=== PATIENT | male | born 1950 | race Caucasian/White ===

== ENCOUNTER 2020-01-09 07:40 | Inpatient (IN) | payer MEDICARE ==
[~2020-01-09] VITALS: Ht 180.3 cm; Wt 114.4 kg
[2020-01-09] VITALS (16 sets, daily range): BP systolic 125–193; BP diastolic 63–125
[~2020-01-09 07:40] MED LIST: ALBUTEROL0.09 MG/A2 INH; AVPAK AZITHROM250 M1 PO; BACTRIM DS 8001 TA1 PO; CIPRO500 MG PO; DUONEB 3 MG/3 ML3 M1 NEB; FLAGYL500 MG PO; KEFLEX500 MG PO; NKHM PO; ORASONE10 MG PO; PERCOCET 325 MG1 TA7 PO; SPIRIVA18 MCG PO; SYMBICORT1 AE1 INH; VICODIN 5/500 505 MG PO
--- NOTE | 2020-01-09 07:56 | NUR ---
BIPAPP CHANGED TO 05/04 100% PULSE OX 89%
--- NOTE | 2020-01-09 08:00 | NUR ---
PATIENT PLACED ON BI-PAP 05/04, 75%. PULSE OX 93%, HR 103, RR 44.
--- NOTE | 2020-01-09 08:00 | NUR ---
BIPAPP 16/8 75% PULSE OX 93%
--- NOTE | 2020-01-09 08:03 | NUR ---
STATES HE LAST SAW PULMONOLOGY LAST WED, SINCE THEN INCREASING WEAKNESS, SOB, AND PEDAL EDEMA HE STOPPED TAKING LOSARTIN BC IT WAS MAKING HIM DIZZY WEARS 2LNC AT ALL TIMES AT HOME
[2020-01-09 08:10] LABS: MEAN CELL VOLUME 96.7 fl (80.0-94.0); MEAN CORPUSCULAR HGB 27.4 pg (27.0-31.0); MEAN CORPUSCULAR HGB CONC 28.3 g/dl (33.0-37.0); MEAN PLATELET VOLUME 10.5 fl (9.6-12.3); NUCLEATED RED BLOOD CELL 0.4 10*3/uL (0.0-0.0); NUCLEATED RED BLOOD CELL 2.6 % (0.0-0.0); PLATELET COUNT AUTOMATED 163 10*3/uL (130-400); RED BLOOD COUNT 6.87 10*6/uL (4.50-5.90); RED CELL DISTRI WIDTH 17.7 % (0-14.5); WHITE BLOOD COUNT 17.2 10*3/uL (4.8-10.8)
[2020-01-09 08:22] LABS: HEMATOCRIT 66.4 % (42.0-52.0)
--- NOTE | 2020-01-09 08:24 | NUR ---
PT PLACED ON BIPAP IN EMERGENCY ROOM FOR RESPIRATORY FAILURE. PT SPO2 69% ON ARRIVAL. PT SETTINGS 16/10/75%, PT SPO2 94%, HR 110
[2020-01-09 08:25] LABS: ATYPICAL LYMPHS 1 % (0-0); PLATELET SUFFICIENCY NORMAL (NORMAL); POLYCHROMASIA SLIGHT; TOTAL CELLS COUNTED 100 #CELLS
[2020-01-09 08:45] LABS: ALBUMIN 3.1 gm/dl (3.1-4.5); CREATININE 1.58 mg/dL (0.70-1.30); POTASSIUM 5.4 mmol/L (3.5-5.1); TOTAL PROTEIN 7.4 gm/dL (6.4-8.2); TROPONIN I 0.043 ng/ml (<0.045)
--- NOTE | 2020-01-09 08:45 | NUR ---
FIO2 INCREASED TO 85% PER DR. MUÑOZ.
--- NOTE | 2020-01-09 08:55 | NUR ---
AVILA PLACED HAD 800CC DANA URINE INITIALLY
[2020-01-09 09:07] LABS: ABG BASE EXCESS 0.2 mmol/L (-2.0-2.0)
--- NOTE | 2020-01-09 09:07 | NUR ---
DR SPANN NOTIFIED OF BP AND PT CONDITION, ALSO OUTPUT OF AVILA
[2020-01-09 09:10] LABS: ACT PARTIAL THROMBO TIME 24.6 SECONDS (20.0-32.1); INTERNATIONAL NORM RATIO 1.5 (2.0-3.5)
[2020-01-09 09:13] LABS: ARTERIAL BLOOD GAS PH 7.12 (7.35-7.45)
--- NOTE | 2020-01-09 09:13 | NUR ---
CO2 AND PH RESULTS GIVEN TO DR SPANN
--- NOTE | 2020-01-09 09:14 | NUR ---
BIPAPP UP TO 85%
--- NOTE | 2020-01-09 10:04 | NUR ---
NOTIFIED FAMILY OF PLAN OF CARE
[2020-01-09] MEDS ORDERED: LOSARTAN POTASS25 M1 PO (10:07)
--- NOTE | 2020-01-09 10:10 | NUR ---
PT DROWSY, RESTING
--- NOTE | 2020-01-09 10:14 | NUR ---
AWAITING BED PLACEMENT IN ICU
--- NOTE | 2020-01-09 10:52 | NUR ---
SECOND EKG COMPLETED, NOTIFIED DR JIMENEZ PT DROWSY, NOT ANSWERING QUESTIONS AND OPENING EYES LIKE UPON ARRIVAL, STATES "HES EXHAUSTED AND HIS BODY JUST NEEDS A REST, I'M NOT CONCERNED" VITALS STABLE
--- NOTE | 2020-01-09 11:48 | NUR ---
STILL AWAITING BED ASSIGNMENT
--- NOTE | 2020-01-09 12:59 | NUR ---
CALLED FLOOR, UNABLE TO TAKE PATIENT UP TO UNIT THEY WILL CALL WHEN READY
--- NOTE | 2020-01-09 13:30 | NUR ---
A 69 yr old male, admitted to ICCU, under the services of JERRY Tian DO with a diagnosis of . Chief complaint is short of breath x 2 days, wheezing and dusky on arrival to ER. Was placed on BiPaP 14/8 and 50% FIO2. ABG's were initially done with pH 7.12 and pCO2 of 122. He was maintained in ER, given IV Lasix, SoluMedrol,Zithromax and Rocephin. Before Patient could be brought to ICCU he was evaluated by the admitting team and found to be unresponsive. ABGs were repeated and pt brought to the ICCU before results were availabe. Dr Dillon was in ICCU waiting on patient to arrive. Patient arrived via stretcher from ER. Monitor applied. Initial assessment completed. Vital signs taken and recorded. See assessment for past medical history, medications and allergies. Patient and/or family oriented to unit. [facility] ICCU visitation policy reviewed. Clothing/patient valuable form completed. FEROZ CHANG L
[2020-01-09 13:38] LABS: ABG BASE EXCESS -6.2 mmol/L (-2.0-2.0); ARTERIAL BLOOD GAS PH 6.99 (7.35-7.45)
--- NOTE | 2020-01-09 13:45 | NUR ---
PT ELECTIVE INTUBATED FOR RESPIRATORY FAILURE WITH A 8 TUBE, 23 AT THE LIP. PTS SETTINGS 500/100%/12/+5. PT TOLERATTING WELL.
--- NOTE | 2020-01-09 13:45 | NUR ---
Patient was intubated by Jacinda Tay CRNA, after unsucessful attempt by Dr Dillon. Patient had 100mg Succinylcholine for intubation. #8 ETT, 23 at the lip. #18 [place] Sump placed orally by SOLUTION PROFESSIONAL also. Stat PCXR done. Soft restraints on to prevent accidental self extubation.
[2020-01-09] MEDS ORDERED: INCRUSE ELLI62.5 MCG INH (14:08)
[2020-01-09] MEDS ORDERED: BREO ELLIPTA 11 EACH INH (14:10)
--- NOTE | 2020-01-09 14:34 | NUR ---
Patient starting to cough, become restless. Diprivan started at 30mcg/kg/min and adequate sedation achieved. Patient arrived from ER with a kevin catheter already in place. An additional IV site obtained left hand by Alia Pham. See all appropriate interventions.
[2020-01-09 15:43] LABS: ABG BASE EXCESS 2.4 mmol/L (-2.0-2.0); ARTERIAL BLOOD GAS PH 7.3 (7.35-7.45)
--- NOTE | 2020-01-09 16:08 | NUR ---
ABG'S WERE DONE RT RADIAL AND CALLED WITH CONSULT TO DR VANCE. REVIEW OF LABS/XRAY.
--- NOTE | 2020-01-09 16:20 | NUR ---
FIO2 HAS BEEN TITRATED DOWN TO 50% POST ABG'S.
--- NOTE | 2020-01-09 18:00 | NUR ---
DR VANCE WAS NOTIFIED OF RESULTS OF REPEAT CXR SHOWING LOSS OF VOLUME RT LUNG AND THAT GASTRIC TUBE NEEDED ADVANCED 7CM. HE WAS ALSO NOTIFIED OF INCREASING FIO2 NEEDED TO MAINTAIN PULSE OX >90%. THE GASTRIC TUBE HAS BEEN ADVANCED WITH AIR BOLUS AUSCULTATED. ORDERS RECEIVED.
--- NOTE | 2020-01-09 18:46 | NUR ---
PT TURNED SIDE TO SIDE, CHEST CLAPPING DONE. SALINE FLUSHES AND SUCTIONED. LARGE AMOUNT THICK YELLOW MUCUS SUCTIONED FROM ETT.
--- NOTE | 2020-01-09 20:37 | NUR ---
PT. RESTING IN BED ADEQUATELY SEDATED ON DIPROVAN DRIP AT 30MICS. HEP LOCK IN LH AND RAN ASYMPT. DIPROVAN INFUSING AT 30MICS, SITE ASYMPT. LUNGS HAVE I&E WHEEZES BILAT AND RHONCHI. ABD SOFTLY DISTENDED AND NORMO. BLE EDEMA NOTED R>L. OGT PLACEMENT CONFIRMED WITH AIR BOLUS AND 10CC'S RESIDUAL WAS NOTED. ORAL MOUTH CARE GIVEN AND PT. SUCTIONED VIA ENDO AND ORALLY FOR SMALL AMT OF MUCOUS. AVILA CATHTER DRAINING A MODERATE AMT OF CLEAR YELLOW URINE. SOFT WRIST RESTRAINTS BILAT TO PREVENT ACCIDENTAL SELF-EXTUBATION. ELA GRIMALDO RN
--- NOTE | 2020-01-09 23:47 | NUR ---
PT. GIVEN VERSED AT 2332 FOR RESTLESSNESS AND DIPROVAN INCREASED TO 40MICS. CURRENTLY SLEEPING, VERSED EFFECTIVE. ELA GRIMALDO RN
[2020-01-10] VITALS (12 sets, daily range): BP systolic 120–164; BP diastolic 51–82
--- NOTE | 2020-01-10 03:07 | NUR ---
VERSED GIVEN AT 0305 ORDERED FOR RESTLESSNESS. IMMEDIATELY EFFECTIVE. ELA GRIMALDO RN
--- NOTE | 2020-01-10 05:54 | NUR ---
PT. GIVEN VERSED ORDERED AT 0552 FOR RESTLESSNESS. ELA GRIMALDO RN
--- NOTE | 2020-01-10 05:54 | NUR ---
PT. RESTING COMFORTABLY, VERSED EFFECTIVE. ELA GRIMALDO RN
[2020-01-10 06:35] LABS: BASO % 0.2 % (0.0-1.0); LYMPH # 0.5 10*3/uL (1.3-4.4); MEAN CORPUSCULAR HGB CONC 30.5 g/dl (33.0-37.0); MEAN PLATELET VOLUME 10.9 fl (9.6-12.3); MONO # 1.3 10*3/uL (0.1-1.0); MONO % 8.1 % (3.0-9.0); NEUT # 13.5 10*3/uL (2.3-7.9); NEUT % 87.9 % (47.0-73.0); NUCLEATED RED BLOOD CELL 0.2 10*3/uL (0.0-0.0); RED BLOOD COUNT 6.81 10*6/uL (4.50-5.90); RED CELL DISTRI WIDTH 16.8 % (0-14.5); WHITE BLOOD COUNT 15.4 10*3/uL (4.8-10.8)
[2020-01-10 06:36] LABS: MEAN CELL VOLUME 88.5 fl (80.0-94.0); PLATELET COUNT AUTOMATED 99 10*3/uL (130-400)
[2020-01-10 06:38] LABS: HEMATOCRIT 60.3 % (42.0-52.0)
[2020-01-10 06:52] LABS: ALBUMIN 2.4 gm/dl (3.1-4.5); BUN 65 mg/dl (7-24); CHLORIDE 97 mmol/L (98-107); SODIUM 139 mmol/L (136-145)
[2020-01-10 07:01] LABS: ALKALINE PHOSPHATASE 118 U/L (45-117); CHOLESTEROL 124 mg/dL (<200); CREATININE 1.31 mg/dL (0.70-1.30); HDL CHOLESTEROL 17 mg/dl (40-60); LDL CHOLESTEROL 70 mg/dL (9-159); SGOT/AST 269 IU/L (3-35); SGPT/ALT 639 U/L (12-78); THYROID STIM HORMONE (HS) 0.136 uIU/ml (0.358-4.75); TOTAL PROTEIN 6.1 gm/dL (6.4-8.2); TRIGLYCERIDES 187 mg/dl (<150); VLDL CHOLESTEROL 37 mg/dL (6-40)
[2020-01-10 07:31] LABS: ABG BASE EXCESS 16.9 mmol/L (-2.0-2.0); ARTERIAL BLOOD GAS PH 7.572 (7.35-7.45)
[2020-01-10 07:32] LABS: VITAMIN D, 25-HYDROXY 17.3 ng/mL (30-100)
--- NOTE | 2020-01-10 08:16 | NUR ---
TYLENOL FOR RECTAL TEMP 101.8
--- NOTE | 2020-01-10 09:00 | NUR ---
TY;ENOL EFFECTIVE
--- NOTE | 2020-01-10 10:11 | NUR ---
BEDSIDE BRONCH COMPLETED
--- NOTE | 2020-01-10 11:00 | NUR ---
Grain Broker in to see patient. He is currently not in her room. Will follow up at a later time.
[2020-01-10 11:19] LABS: ACT PARTIAL THROMBO TIME 23.6 SECONDS (20.0-32.1); INTERNATIONAL NORM RATIO 1.3 (2.0-3.5)
[2020-01-10 11:29] LABS: ABG BASE EXCESS 14.7 mmol/L (-2.0-2.0); ARTERIAL BLOOD GAS PH 7.407 (7.35-7.45)
--- NOTE | 2020-01-10 12:07 | NUR ---
Nutritional Support Services Note: Pt with dx of CHF, ARF, pneumonia, sepsis, COPD. Currently on a vent. Ht.5'11 Wt.247# IBW 520-540. He receives tube feedings of pulmocare at 20cc/hr. TF is providing pt with 480cc/720cal daily. He requires approx. 2200cal daily. Will continue to follow. Dahiana Mccray Rdn Ld
[2020-01-10 13:42] LABS: ABG BASE EXCESS 14.9 mmol/L (-2.0-2.0); ARTERIAL BLOOD GAS PH 7.404 (7.35-7.45)
--- NOTE | 2020-01-10 14:00 | NUR ---
CENTRAL LINE PLACED BY DR SHAW ART LINE PLACED BY DR SMART COVCOSMO SWAB DONE ON BRONCH WASHINGS PT MOVED TO 419 FOR NEGATIVE AIR FLOW HEPARIN DRIP (PE) PROTOCOL STARTED DIPROVAN REMAINS AT 40 MCG/26.4 CC
--- NOTE | 2020-01-10 15:18 | NUR ---
DILUADID FOR COMFORT
--- NOTE | 2020-01-10 15:30 | NUR ---
NIMBEX STARTED AT 1MCG AFTER PRONING
--- NOTE | 2020-01-10 15:30 | NUR ---
PT PRONED DUODERM PLACED ON FOREHEAD AND CHIN PT RECIEVED ONE DOSE OF ZEMURON JUST PRIOR TO PRONING TUBE FEEDS ADJUSTED TO 10 CC AFTER PRONING ALL SKIN PRECAUTIONS TAKEN FOR KNEES/FEET/AND GENITALS DR VANCE UPDATED
--- NOTE | 2020-01-10 17:26 | NUR ---
ID NOTIFIED OF CONSULT
[2020-01-10 17:54] LABS: ARTERIAL BLOOD GAS PH 7.38 (7.35-7.45)
--- NOTE | 2020-01-10 19:04 | NUR ---
VERSED FOR ADDITIONAL SEDATION
--- NOTE | 2020-01-10 19:41 | NUR ---
NIMBEX TITRATED TO 1.5MCG FOR SEDATION/PARALYZING AGENT
--- NOTE | 2020-01-10 20:30 | NUR ---
Informed during shift change and from nurse that patient is to be "swam" every two hours but the head is to be tilted from the middle to patients right back to the middle and to the right again. This was per anesthesia for more control of the tube. Arms swam by nurse at this time. Left arm up and right down.
[2020-01-10 20:36] LABS: ABG BASE EXCESS 14.3 mmol/L (-2.0-2.0); ARTERIAL BLOOD GAS PH 7.379 (7.35-7.45)
--- NOTE | 2020-01-10 21:00 | NUR ---
Pt decreased FiO2 from 60% to 50% per and latest ABG. No further changes. ABG in the morning.
--- NOTE | 2020-01-10 21:30 | NUR ---
DILUADID FOR PAIN
--- NOTE | 2020-01-10 21:40 | NUR ---
PTT >139 HEPARIN DRIP TURNED OFF TO BE RESUMED AT 1040 AT 15 UNITS/KG PTT ORDERED FOR 0500
--- NOTE | 2020-01-10 23:24 | NUR ---
Shift chart check completed.24 HR chart check completed.
--- NOTE | 2020-01-10 23:30 | NUR ---
Pt swam and head turned. No comps.
[2020-01-11] VITALS (12 sets, daily range): BP systolic 136–158; BP diastolic 68–77
--- NOTE | 2020-01-11 00:11 | NUR ---
ON ASSESSMENT PATIENT REMAINS IN PRONE POSITION, ON VENTILATOR. ORALLY INTUBATED. SOFT RESTRAINTS FOR SAFETY. CIRCULATION UNIMPAIRED. DIPRIVAN DRIP AT 40MCG/KG/MIN, HEPARIN DRIP AT 15UNITS/KG/HR, AND NIMBEX DRIP AT 1.5MCG/KG/MIN. TUBE FEEDING AT 10CC/HR WHILE IN PRONE POSITION. MONITOR ST WITH OCCASIONAL MAT. AVILA PATENT DANA URINE. PRESSURE AREAS CHECKED. PATIENT IS VISIBLE VIA CAMERA AT ALL TIMES. SEE ALL APPROPRIATE INTERVENTIONS.
--- NOTE | 2020-01-11 02:45 | NUR ---
Pt already "swam" by the nurse. No comps.
--- NOTE | 2020-01-11 03:06 | NUR ---
WHEN I HAD DONE INITIAL ASSESSMENT AT 0000 THERE WAS A SMALL AMOUNT OF URINE IN THE BAG. AT 0200 WHEN ALTERNATING HIS ARMS THERE DIDN'T SEEM TO BE ANYMORE URINE IN THE BAG. CHECKED HIS PENIS/SCROTUM AND CATHETER FOR ANY KINKS IN THE CATHETER OR PRESSURE ON HIS PENIS. NONE NOTED. I IRRIGATED AVILA WITH STERILE SALINE, SLUGGISH AT FIRST THEN IRRIGATED FREELY WITH CATHETER DRAINING APPROXIMATELY 600ML IN 20 MINUTES. TYLENOL SUPPOSITORY FOR RECTAL TEMP 101.1.
--- NOTE | 2020-01-11 03:26 | NUR ---
TEMP STILL 100.9 ONE HOUR AFTER TYLENOL GIVEN.
--- NOTE | 2020-01-11 03:35 | NUR ---
ROUTINE SCHEDULED DILAUDID GIVEN FOR DISCOMFORT FROM INTUBATION, PRONING, POSITIONING.
--- NOTE | 2020-01-11 04:20 | NUR ---
NO ADVERSE EFFECTS FROM DILAUDID. IT DID BRIEFLY LOWER BP TO LESS THAN 140. HE REMAINS ADEQUATELY SEDATED ON DIPRIVAN/NIMBEX.
--- NOTE | 2020-01-11 05:30 | NUR ---
Proned pt "swam" with his arms and head shifted. No comps.
--- NOTE | 2020-01-11 06:30 | NUR ---
HEPARIN DRIP OFF FOR PTT 105.5. WILL RESUME AT 0728 AT 12UNITS/KG. NEXT PTT ORDERED FOR 1330.
[2020-01-11 06:35] LABS: ALBUMIN 2.3 gm/dl (3.1-4.5); ALKALINE PHOSPHATASE 97 U/L (45-117); CHLORIDE 98 mmol/L (98-107); CREATININE 1.15 mg/dL (0.70-1.30); HEMATOCRIT 57.2 % (42.0-52.0); MEAN CORPUSCULAR HGB CONC 28.8 g/dl (33.0-37.0); MEAN PLATELET VOLUME 10.6 fl (9.6-12.3); NUCLEATED RED BLOOD CELL 0.2 % (0.0-0.0); PLATELET COUNT AUTOMATED 90 10*3/uL (130-400); POTASSIUM 4.5 mmol/L (3.5-5.1); RED CELL DISTRI WIDTH 16.8 % (0-14.5); SGOT/AST 218 IU/L (3-35); SGPT/ALT 408 U/L (12-78); SODIUM 143 mmol/L (136-145); TOTAL PROTEIN 5.5 gm/dL (6.4-8.2); WHITE BLOOD COUNT 16.2 10*3/uL (4.8-10.8)
[2020-01-11 06:40] LABS: BUN 55 mg/dl (7-24)
[2020-01-11 06:44] LABS: MEAN CELL VOLUME 93.8 fl (80.0-94.0)
[2020-01-11 06:49] LABS: PLATELET SUFFICIENCY LOW (NORMAL); POLYCHROMASIA SLIGHT; TOTAL CELLS COUNTED 100 #CELLS
--- NOTE | 2020-01-11 06:59 | NUR ---
DR REIS NOTIFIED OF CRITICAL VALUE CO2 OF 43.
[2020-01-11 07:39] LABS: ABG BASE EXCESS 12.8 mmol/L (-2.0-2.0); ARTERIAL BLOOD GAS PH 7.301 (7.35-7.45)
--- NOTE | 2020-01-11 08:05 | NUR ---
VERSED 5 MG IV GIVEN TO FACILITATE UN-PRONING.
--- NOTE | 2020-01-11 08:30 | NUR ---
VERSED EFFECTIVE FOR UN-PRONING PATIENT. COMPLETE BATH GIVEN. ON REMOVAL OF CARMEN HOSE FOR BATH, THE TOES ARE DUSKY AND COOL. PEDAL PULSES ARE PALPABLE. BLANKET APPLIED AFTER BATHING.
--- NOTE | 2020-01-11 09:02 | NUR ---
SCHEDULED DILAUDID FOR DISCOMFORT FROM ETT, CATHETER ETC.
--- NOTE | 2020-01-11 09:30 | NUR ---
Patient is in COVID isolation and intubated. Discharge plan undecided. Will follow up at a later time.
--- NOTE | 2020-01-11 09:40 | NUR ---
DR VANCE VISITED. HE LOOKED AT PT'S FEET. HEPARIN DRIP D/C AND THE HEPARINIZED SALINE REMOVED FROM THE PRESSURE BAG FOR ARTERIAL LINE. AIR LEAK CAN BE HEARD FROM AROUND ETT. DR VANCE VIEWED CXR AND ORDERED FOR ETT TO BE ADVANCED.
--- NOTE | 2020-01-11 09:54 | NUR ---
DR VANCE HAS VISITED. PT HAS SMALL AIR LEAK AND LOW PULSE OX. DR VANCE REVIEWED THE CXR AND ETT IS TO BE ADVANCED 3CM. SHOWED HIM THE PATIENTS DUSKY TOES. HEPARIN DRIP D/C AND TO BE NO HEPARIN IN ART LINE BAG.
--- NOTE | 2020-01-11 10:15 | NUR ---
ETT ADVANCED BY RESPIRATORY THERAPY. NIMBEX HAS BEEN OFF SINCE UN-PRONING PT. DIPRIVAN CONTINUES AT 40MCG/KG/MIN.
[2020-01-11 12:18] LABS: ABG BASE EXCESS 12.5 mmol/L (-2.0-2.0); ARTERIAL BLOOD GAS PH 7.342 (7.35-7.45)
[2020-01-11 13:09] LABS: ACID FAST SPEC PROCESSING Concentration (.)
--- NOTE | 2020-01-11 20:23 | NUR ---
PATIENT MOVED TO [facility] PATIENT ASSESSMENT COMPLETE PATIENTS ENDO TUBE 27 AT THE LIP FIO2 50% PATIENT PLACED ON COOLING BLANKET DUE TO TEMP SEE VITALS. OG PLACEMENT CHECKED TUBE FEEDING INFUSING AT 20ML/HR.
--- NOTE | 2020-01-11 22:31 | NUR ---
DOCTOR HIEN INFORMED THAT TYLENOL HAS NOT BEEN EFFECTIVE FOR PATIENTS FEVER TEMP IS STILL 101.5
--- NOTE | 2020-01-11 22:46 | NUR ---
DOCTOR HIEN CALLED AND SAID THAT RIGHT NOW WE ARE GOING TO WATCH PATIENTS TEMP UNTIL IT HITS 102.0.
[2020-01-12] VITALS (11 sets, daily range): BP systolic 138–174; BP diastolic 70–82
[2020-01-12 05:39] LABS: ALBUMIN 2.2 gm/dl (3.1-4.5); ALKALINE PHOSPHATASE 72 U/L (45-117); BUN 46 mg/dl (7-24); CHLORIDE 101 mmol/L (98-107); CREATININE 1.11 mg/dL (0.70-1.30); POTASSIUM 3.8 mmol/L (3.5-5.1); SGOT/AST 235 IU/L (3-35); SGPT/ALT 267 U/L (12-78); SODIUM 144 mmol/L (136-145); TOTAL PROTEIN 5.4 gm/dL (6.4-8.2)
[2020-01-12 05:51] LABS: HEMATOCRIT 53.2 % (42.0-52.0); MEAN CELL VOLUME 95.5 fl (80.0-94.0); MEAN CORPUSCULAR HGB 26.9 pg (27.0-31.0); MEAN CORPUSCULAR HGB CONC 28.2 g/dl (33.0-37.0); MEAN PLATELET VOLUME 11.8 fl (9.6-12.3); NUCLEATED RED BLOOD CELL 0.2 % (0.0-0.0); PLATELET COUNT AUTOMATED 95 10*3/uL (130-400); RED BLOOD COUNT 5.57 10*6/uL (4.50-5.90); RED CELL DISTRI WIDTH 15.5 % (0-14.5); WHITE BLOOD COUNT 12.5 10*3/uL (4.8-10.8)
[2020-01-12 06:50] LABS: TOTAL CELLS COUNTED 100 #CELLS
[2020-01-12 06:51] LABS: PLATELET SUFFICIENCY LOW (NORMAL)
[2020-01-12 07:35] LABS: ABG BASE EXCESS 9.9 mmol/L (-2.0-2.0); ARTERIAL BLOOD GAS PH 7.332 (7.35-7.45)
--- NOTE | 2020-01-12 10:30 | NUR ---
Fire Management Officer in to see patient. He is intubated. Fire Management Officer will continue to follow for discharge planning needs.
--- NOTE | 2020-01-12 11:35 | NUR ---
NOTIFIED OF NEW CONSULT ORDER. NEW ORDER RECEIVED TO CONSULT .
--- NOTE | 2020-01-12 11:40 | NUR ---
CALLED ANSWERING SERVICE REGARDING NEW CONSULT. TRANSFERRED CALL TO VOICEMAIL. MESSAGE LEFT.
[2020-01-12 12:10] LABS: ABG BASE EXCESS 9.8 mmol/L (-2.0-2.0); ARTERIAL BLOOD GAS PH 7.422 (7.35-7.45)
--- NOTE | 2020-01-12 13:39 | NUR ---
13:00 PT TRANSPORTED TO AND FROM RADIOLOGY WITHOUT INCICENT FOR CT SCAN. PT BAGGED WITH 100% DURING TRANSPORT. PT ON VENT DURING TESTING.
--- NOTE | 2020-01-12 14:45 | NUR ---
CALLED BACK. INFORMED OF NEW CONSULT. UPDATED ON PATIENT CONDITION AND TEST RESULTS. NEW ORDERS RECEIVED TO START HEPARIN GTT AND TRANSFER PATIENT TO [facility]. NOTIFIED OF THIS. STATES SHE WILL TALK WITH THE FAMILY REGARDING TRANSFER.
[2020-01-12 16:14] LABS: ACT PARTIAL THROMBO TIME 24.5 SECONDS (20.0-32.1); INTERNATIONAL NORM RATIO 1.2 (2.0-3.5)
--- NOTE | 2020-01-12 16:30 | NUR ---
CALLED REGARDING CTA REPORT. SUGGESTS PATIENT BE TRANSFERRED TO [facility]. NOTIFIED OF THIS. STATES SHE WILL TALK WITH THE FAMILY REGARDING TRANSFER TO [facility].
--- NOTE | 2020-01-12 19:27 | NUR ---
REPORT GIVEN TO JADEN AT [facility].
--- NOTE | 2020-01-12 20:30 | NUR ---
[employer] flight crew here, unable to fit patient into chopper due to girth. Will send in bigger unit.
--- NOTE | 2020-01-12 20:55 | NUR ---
Second life flight crew in to transport patient.
--- NOTE | 2020-01-12 21:22 | NUR ---
Patient left floor via [facility] for transfer to [facility].
[2020-01-13 08:11] LABS: HEP B CORE AB, IGM Negative (Negative); HEPATITIS B SURFACE AG Negative (Negative); HEPATITIS C VIRUS ANTIBODY 0.2 s/co (0.0-0.9)
[2020-01-13 18:11] LABS: HLA CLASS 1 ANTIBODY Negative (Negative); IIb/IIIa ANTIBODY Negative (Negative); Ia/IIa ANTIBODY Negative (Negative); Ib/IX ANTIBODY Negative (Negative)
== END 2020-01-12 21:22 | disposition short-term general hospital (02) | DRG 871 ==
LOC: ED 07:40 → EDHOLD 09:29 → 4E 09:29 → ICCU 09:29 → 4E 01-10 14:06 → ICCU 01-11 19:53
PROVIDERS: Emergency Medicine; Internal Medicine; Internal Medicine Critical Care Medicine; Surgery Vascular Surgery; ADMIT Family Medicine
PROC: 5A09357 Assistance with Respiratory Ventilation, Less than 24 Consecutive Hours, Continuous Positive Airway Pressure (ICD-10-PCS; principal; 2020-01-09)
PROC: 5A1945Z Respiratory Ventilation, 24-96 Consecutive Hours (ICD-10-PCS; principal; 2020-01-09)
PROC: 0BH17EZ Insertion of Endotracheal Airway into Trachea, Via Natural or Artificial Opening (ICD-10-PCS; principal; 2020-01-09)
PROC: 0B958ZZ Drainage of Right Middle Lobe Bronchus, Via Natural or Artificial Opening Endoscopic (ICD-10-PCS; 2020-01-10)
PROC: 0B998ZZ Drainage of Lingula Bronchus, Via Natural or Artificial Opening Endoscopic (ICD-10-PCS; 2020-01-10)
PROC: 4A133J1 Monitoring of Arterial Pulse, Peripheral, Percutaneous Approach (ICD-10-PCS; 2020-01-10)
PROC: 0B968ZZ Drainage of Right Lower Lobe Bronchus, Via Natural or Artificial Opening Endoscopic (ICD-10-PCS; 2020-01-10)
PROC: 0B988ZZ Drainage of Left Upper Lobe Bronchus, Via Natural or Artificial Opening Endoscopic (ICD-10-PCS; 2020-01-10)
PROC: 03HY32Z Insertion of Monitoring Device into Upper Artery, Percutaneous Approach (ICD-10-PCS; 2020-01-10)
PROC: 0B928ZZ Drainage of Carina, Via Natural or Artificial Opening Endoscopic (ICD-10-PCS; 2020-01-10)
PROC: 0B948ZZ Drainage of Right Upper Lobe Bronchus, Via Natural or Artificial Opening Endoscopic (ICD-10-PCS; 2020-01-10)
PROC: B548ZZA Ultrasonography of Superior Vena Cava, Guidance (ICD-10-PCS; 2020-01-10)
PROC: 0B9B8ZZ Drainage of Left Lower Lobe Bronchus, Via Natural or Artificial Opening Endoscopic (ICD-10-PCS; 2020-01-10)
PROC: 4A133B1 Monitoring of Arterial Pressure, Peripheral, Percutaneous Approach (ICD-10-PCS; 2020-01-10)
PROC: 02HV33Z Insertion of Infusion Device into Superior Vena Cava, Percutaneous Approach (ICD-10-PCS; 2020-01-10)
DX: A41.9 Sepsis, unspecified organism (principal); N17.0 Acute kidney failure with tubular necrosis; J18.9 Pneumonia, unspecified organism; J96.21 Acute and chronic respiratory failure with hypoxia; J96.22 Acute and chronic respiratory failure with hypercapnia; I50.21 Acute systolic (congestive) heart failure; I16.1 Hypertensive emergency; J44.0 Chronic obstructive pulmonary disease with (acute) lower respiratory infection; E87.3 Alkalosis; J44.1 Chronic obstructive pulmonary disease with (acute) exacerbation; R65.20 Severe sepsis without septic shock; E83.41 Hypermagnesemia; D75.1 Secondary polycythemia; E80.6 Other disorders of bilirubin metabolism; Z20.828 Contact with and (suspected) exposure to other viral communicable diseases; E87.5 Hyperkalemia; R73.9 Hyperglycemia, unspecified; R74.0 Nonspecific elevation of levels of transaminase and lactic acid dehydrogenase [LDH]; I73.9 Peripheral vascular disease, unspecified; D69.6 Thrombocytopenia, unspecified; E66.01 Morbid (severe) obesity due to excess calories; I11.0 Hypertensive heart disease with heart failure; Z79.899 Other long term (current) drug therapy; Z68.34 Body mass index [BMI] 34.0-34.9, adult

== ENCOUNTER → 2021-04-29 | Outpatient (CLI) | payer MEDICARE ==
[~2021-04-29] MED LIST changes: +BREO ELLIPTA 11 EACH INH; +INCRUSE ELLI62.5 MCG INH; +LOSARTAN POTASS25 M1 PO
[2021-04-29 12:54] LABS: BILIRUBIN Negative (Negative); BLOOD Negative (Negative); CLARITY Clear (Clear); COLOR Yellow (Yellow); GLUCOSE Negative (Negative); KETONE Negative (Negative); LEUKO ESTERASE Negative (Negative); NITRITE Negative (Negative); SPECIFIC GRAVITY 1.015 (1.001-1.030)
[2021-04-29 13:04] LABS: BASO % 0.3 % (0.0-1.0); EOS # 0.2 10*3/uL (0.0-0.4); EOS % 1.7 % (1.0-4.0); HEMATOCRIT 59.4 % (42.0-52.0); LYMPH # 2.4 10*3/uL (1.3-4.4); LYMPH % 25.1 % (27.0-41.0); MEAN CELL VOLUME 90.1 fl (80.0-94.0); MEAN CORPUSCULAR HGB 28.2 pg (27.0-31.0); MEAN CORPUSCULAR HGB CONC 31.3 g/dl (33.0-37.0); MEAN PLATELET VOLUME 9.9 fl (9.6-12.3); MONO # 0.7 10*3/uL (0.1-1.0); MONO % 7.7 % (3.0-9.0); NEUT # 6.2 10*3/uL (2.3-7.9); PLATELET COUNT AUTOMATED 186 10*3/uL (130-400); RED BLOOD COUNT 6.59 10*6/uL (4.50-5.90); RED CELL DISTRI WIDTH 14.6 % (0-14.5); RETICULOCYTE % 1.35 % (0.50-2.50); WHITE BLOOD COUNT 9.6 10*3/uL (4.8-10.8)
[2021-04-29 13:09] LABS: ALBUMIN 3.4 gm/dl (3.1-4.5); ALKALINE PHOSPHATASE 93 U/L (45-117); BUN 20 mg/dl (7-24); CHLORIDE 104 mmol/L (98-107); CHOLESTEROL 178 mg/dL (<200); CREATININE 0.84 mg/dL (0.70-1.30); GAMMA GLUTAMYL TRANSPEPTIDASE 26 U/L (15-85); IRON 108 ug/dL (65-175); LDL CHOLESTEROL 106 mg/dL (9-159); POTASSIUM 5.1 mmol/L (3.5-5.1); SGOT/AST 13 IU/L (3-35); SGPT/ALT 27 U/L (12-78); SODIUM 140 mmol/L (136-145); TOTAL PROTEIN 7.4 gm/dL (6.4-8.2); TRIGLYCERIDES 171 mg/dl (<150)
[2021-04-29 13:20] LABS: CPK 73 U/L (39-308); THYROID STIM HORMONE (HS) 0.532 uIU/ml (0.358-4.75); TOTAL IRON BINDING CAPACITY 445 ug/dl (250-450)
[2021-04-29 13:35] LABS: FERRITIN 40.7 ng/mL (22.0-322.0)
[2021-04-29 13:36] LABS: VITAMIN D, 25-HYDROXY 17.9 ng/mL (30-100)
== END | disposition home or self-care (01) ==
LOC: LAB 12:08
PROVIDERS: ATTEND Family Medicine
DX: R79.89 Other specified abnormal findings of blood chemistry (principal); R53.83 Other fatigue; E78.5 Hyperlipidemia, unspecified; E55.9 Vitamin D deficiency, unspecified; Z12.5 Encounter for screening for malignant neoplasm of prostate

== ENCOUNTER → 2022-04-30 | Outpatient (CLI) | payer MEDICARE ==
[2022-04-30 12:40] LABS: HEMATOCRIT 59.4 % (42.0-52.0); MEAN CELL VOLUME 94.7 fl (80.0-94.0); MEAN CORPUSCULAR HGB 29.5 pg (27.0-31.0); MEAN CORPUSCULAR HGB CONC 31.1 g/dl (33.0-37.0); MEAN PLATELET VOLUME 10.2 fl (9.6-12.3); PLATELET COUNT AUTOMATED 153 10*3/uL (130-400); RED BLOOD COUNT 6.27 10*6/uL (4.50-5.90); RED CELL DISTRI WIDTH 14.6 % (0-14.5); WHITE BLOOD COUNT 8.9 10*3/uL (4.8-10.8)
[2022-04-30 12:58] LABS: BUN 23 mg/dl (7-24); CHLORIDE 106 mmol/L (98-107); CHOLESTEROL 94 mg/dL (<200); GAMMA GLUTAMYL TRANSPEPTIDASE 19 U/L (15-85); POTASSIUM 4.2 mmol/L (3.5-5.1); SODIUM 141 mmol/L (136-145); THYROXINE (T4) TOTAL 8.3 ug/dl (4.5-12.1); TOTAL PROTEIN 7.1 gm/dL (6.4-8.2); TRIGLYCERIDES 129 mg/dl (<150)
[2022-04-30 13:08] LABS: ALKALINE PHOSPHATASE 92 U/L (45-117); ATYPICAL LYMPHS 3 % (0-0); IRON 71 ug/dL (65-175); LDL CHOLESTEROL 33 mg/dL (9-159); SGOT/AST 12 IU/L (3-35); SGPT/ALT 17 U/L (12-78); T3 UPTAKE 38 % (31-39); THYROID STIM HORMONE (HS) 0.223 uIU/ml (0.358-4.75); TOTAL CELLS COUNTED 100 #CELLS
[2022-04-30 13:09] LABS: OVALOCYTES FEW; PLATELET SUFFICIENCY NORMAL (NORMAL); POLYCHROMASIA SLIGHT
[2022-04-30 13:14] LABS: BILIRUBIN Negative (Negative); BLOOD Negative (Negative); CLARITY Clear (Clear); COLOR Yellow (Yellow); GLUCOSE Negative (Negative); KETONE Negative (Negative); LEUKO ESTERASE Negative (Negative); NITRITE Negative (Negative); PH 5.5 (4.5-8.0); SPECIFIC GRAVITY 1.025 (1.001-1.030)
[2022-04-30 13:24] LABS: FERRITIN 35.4 ng/mL (22.0-322.0)
[2022-04-30 13:46] LABS: RBC 0-2 rbc/hpf (0-2); WBC 0-2 wbc/hpf (0-5)
[2022-04-30 13:56] LABS: VITAMIN D, 25-HYDROXY 24.7 ng/mL (30-100)
[2022-05-01 06:06] LABS: TOTAL PROTEIN, SERUM 6.5 g/dL (6.0-8.5)
[2022-05-01 10:06] LABS: CREATININE,URINE 119.3 mg/dL (Not Estab.)
[2022-05-01 14:06] LABS: A/G RATIO 1.1 (0.7-1.7); ALBUMIN 3.4 g/dL (2.9-4.4); ALPHA-1-GLOBULIN 0.2 g/dL (0.0-0.4); ALPHA-2-GLOBULIN 0.7 g/dL (0.4-1.0); GAMMA GLOBULIN 1.1 g/dL (0.4-1.8); GLOBULIN, TOTAL 3.1 g/dL (2.2-3.9); M-SPIKE Not Observed g/dL (Not Observed)
== END | disposition home or self-care (01) ==
LOC: LAB 11:58
PROVIDERS: ATTEND Family Medicine
DX: E78.5 Hyperlipidemia, unspecified (principal); E55.9 Vitamin D deficiency, unspecified; R79.89 Other specified abnormal findings of blood chemistry; R53.83 Other fatigue; R74.8 Abnormal levels of other serum enzymes; Z12.5 Encounter for screening for malignant neoplasm of prostate

== ENCOUNTER → 2023-08-20 | Outpatient (CLI) | payer MEDICARE ==
[2023-08-20 13:41] LABS: BASO # 0.1 10*3/uL (0.0-0.1); BASO % 0.4 % (0.0-1.0); EOS # 0.1 10*3/uL (0.0-0.4); EOS % 1.2 % (1.0-4.0); HEMATOCRIT 55.7 % (42.0-52.0); LYMPH # 2.6 10*3/uL (1.3-4.4); LYMPH % 23.4 % (27.0-41.0); MEAN CELL VOLUME 94.7 fl (80.0-94.0); MEAN CORPUSCULAR HGB 28.9 pg (27.0-31.0); MEAN CORPUSCULAR HGB CONC 30.5 g/dl (33.0-37.0); MEAN PLATELET VOLUME 9.6 fl (9.6-12.3); MONO % 8.6 % (3.0-9.0); NEUT # 7.5 10*3/uL (2.3-7.9); PLATELET COUNT AUTOMATED 191 10*3/uL (130-400); RED BLOOD COUNT 5.88 10*6/uL (4.50-5.90); RED CELL DISTRI WIDTH 13.8 % (0-14.5); WHITE BLOOD COUNT 11.3 10*3/uL (4.8-10.8)
[2023-08-20 13:58] LABS: BILIRUBIN Negative (Negative); BLOOD Negative (Negative); CLARITY Clear (Clear); COLOR Yellow (Yellow); GLUCOSE Negative (Negative); KETONE Negative (Negative); LEUKO ESTERASE Negative (Negative); NITRITE Negative (Negative); SPECIFIC GRAVITY 1.015 (1.001-1.030)
[2023-08-20 14:05] LABS: ALKALINE PHOSPHATASE 100 U/L (46-116); BUN 17 mg/dl (9-23); CHLORIDE 101 mmol/L (98-107); CHOLESTEROL 112 mg/dL (<200); GAMMA GLUTAMYL TRANSPEPTIDASE 25 U/L (0-73); LDL CHOLESTEROL 55 mg/dL (9-159); POTASSIUM 4.6 mmol/L (3.4-5.1); SGPT/ALT 11 U/L (5-49); T3 UPTAKE 32.3 % (22.4-36.7); THYROXINE (T4) TOTAL 6.4 ug/dl (4.5-10.9); TOTAL PROTEIN 7.4 gm/dL (6.0-8.0); TRIGLYCERIDES 116 mg/dl (<150)
[2023-08-20 14:07] LABS: VITAMIN D, 25-HYDROXY 39.9 ng/mL (30-100)
[2023-08-20 15:23] LABS: BACTERIA TRACE; WBC 0-2 wbc/hpf (0-5)
== END ==
LOC: RAD 13:12
PROVIDERS: ATTEND Family Medicine
DX: Z12.5 Encounter for screening for malignant neoplasm of prostate (principal); J43.9 Emphysema, unspecified; I31.1 Chronic constrictive pericarditis; I51.7 Cardiomegaly; R05.3 Chronic cough; E78.5 Hyperlipidemia, unspecified; R79.89 Other specified abnormal findings of blood chemistry; R53.83 Other fatigue; E55.9 Vitamin D deficiency, unspecified; R06.02 Shortness of breath; I70.0 Atherosclerosis of aorta; M47.814 Spondylosis without myelopathy or radiculopathy, thoracic region; M19.012 Primary osteoarthritis, left shoulder; M19.011 Primary osteoarthritis, right shoulder; Z95.828 Presence of other vascular implants and grafts

== ENCOUNTER → 2023-09-01 | Outpatient (CLI) | payer MEDICARE | END | disposition home or self-care (01) | LOC: CP 11:10 → CARD 11:10 | PROVIDERS: ATTEND Family Medicine | DX: J43.9 Emphysema, unspecified (principal) ==

== ENCOUNTER → 2023-12-08 | Outpatient (CLI) | payer MEDICARE ==
[2023-12-08 14:19] LABS: BASO # 0.1 10*3/uL (0.0-0.1); BASO % 0.5 % (0.0-1.0); EOS # 0.1 10*3/uL (0.0-0.4); EOS % 1.2 % (1.0-4.0); HEMATOCRIT 58.2 % (42.0-52.0); LYMPH # 2.3 10*3/uL (1.3-4.4); MEAN CELL VOLUME 97.5 fl (80.0-94.0); MEAN CORPUSCULAR HGB 29.1 pg (27.0-31.0); MEAN CORPUSCULAR HGB CONC 29.9 g/dl (33.0-37.0); MONO % 8.7 % (3.0-9.0); NEUT # 7.4 10*3/uL (2.3-7.9); NEUT % 68.3 % (47.0-73.0); PLATELET COUNT AUTOMATED 150 10*3/uL (130-400); RED BLOOD COUNT 5.97 10*6/uL (4.50-5.90); RED CELL DISTRI WIDTH 15.7 % (0-14.5); RETICULOCYTE % 1.84 % (0.50-2.50); WHITE BLOOD COUNT 10.9 10*3/uL (4.8-10.8)
[2023-12-08 14:51] LABS: RBC 0-2 rbc/hpf (0-2); WBC 0-2 wbc/hpf (0-5)
[2023-12-08 14:52] LABS: BILIRUBIN Negative (Negative); BLOOD Negative (Negative); CLARITY Clear (Clear); COLOR Yellow (Yellow); GLUCOSE 1+ (Negative); KETONE Trace (Negative); LEUKO ESTERASE Negative (Negative); NITRITE Negative (Negative); SPECIFIC GRAVITY 1.015 (1.001-1.030); UROBILINOGEN 0.2 E.U./dl (0.0-1.0)
[2023-12-08 14:54] LABS: VITAMIN D, 25-HYDROXY 43.8 ng/mL (30-100)
[2023-12-08 15:12] LABS: ALKALINE PHOSPHATASE 94 U/L (46-116); BUN 15 mg/dl (9-23); CHLORIDE 101 mmol/L (98-107); CHOLESTEROL 108 mg/dL (<200); DIGOXIN 0.56 ng/ml (0.8-2.0); GAMMA GLUTAMYL TRANSPEPTIDASE 32 U/L (0-73); LDL CHOLESTEROL 44 mg/dL (9-159); POTASSIUM 4.4 mmol/L (3.4-5.1); SGPT/ALT 13 U/L (5-49); TOTAL PROTEIN 6.9 gm/dL (6.0-8.0); TRIGLYCERIDES 126 mg/dl (<150)
== END | disposition home or self-care (01) ==
LOC: LAB 13:53
PROVIDERS: ATTEND Family Medicine
DX: R53.83 Other fatigue (principal); R79.89 Other specified abnormal findings of blood chemistry; E78.5 Hyperlipidemia, unspecified; E55.9 Vitamin D deficiency, unspecified